=== PATIENT | female | born 1975 | race Caucasian/White ===

== ENCOUNTER 2018-04-18 08:35 | Emergency (ER) | payer OTHER ==
[2018-04-18 08:56] VITALS: BP 122/84
--- NOTE | 2018-04-18 09:43 | RAD ---
INDICATION: Constipation COMPARISON: None TECHNIQUE: Erect and supine views of the abdomen are submitted. FINDINGS: Bones: There are no acute bony findings. Soft tissues: The soft tissues appear normal. The psoas margins are sharp. Bowel gas pattern: Normal Calcifications: There are no abnormal calcifications. There are phleboliths. Other: There are surgical clips projecting over the lower abdomen and pelvis IMPRESSION: NO ACUTE DIAGNOSTIC FINDINGS.
--- NOTE | 2018-04-18 10:20 | UC ---
Abdominal Pain Female HPI - HPI Summary HPI Summary: Patient states she had a bought of diarrhea 10 days ago and that ever since her BMs have been far in between with hardened stools. SHE has taken miralax which yielded liquid stools 2 days ago and then her bowel has not been moving ever since but occasionally. She has history of gastric bypass and went from 270lbs to 170 lbs but now states that since constipation has gained weight again. States she has colicky pain once in a while, on the right side of abdomen. Denies vomiting, fever or mucus/blood/melena in stool. Denies dysuria or flank pain. LMD 10 years ago - History of Current Complaint Chief Complaint: UCGI Stated Complaint: LOW BACK PAIN/GI, Time Seen by Provider: 04/18/18 08:41 Hx Obtained From: Patient Hx Last Menstrual Period: ~2007 ?: No Onset/Duration: Sudden Onset Pain Intensity: 3 Location: Other - right abdomen Radiates to: Back Character: Colicy, Cramping Aggravating Factor(s): Nothing Alleviating Factor(s): Bowel Movement Associated Signs and Symptoms: Positive: Constipation - Risk Factors Ectopic Risk Factor: Negative Ovarian Torsion Risk Factor: Negative Allergies/Adverse Reactions: Allergies Allergy/AdvReac Type Severity Reaction Status Date / Time bee venom protein (honey bee) Allergy Difficulty Verified 04/18/18 08:52 Breathing and Swelling latex Allergy Localized Verified 04/18/18 08:52 Irritation Home Medications: Home Medications Tamoxifen Citrate 20 mg PO DAILY 04/18/18 [History Confirmed 04/18/18] PMH/Surg Hx/FS Hx/Imm Hx Previously Healthy: Yes Cancer History: Breast Cancer - Surgical History Surgical History: Yes Surgery Procedure, Year, and Place: Right Breast Lumpectomy, 2016, [place]; Gastric Bypass, 2009, [place] - Social History Alcohol Use: Weekly Substance Use Type: None Smoking Status (MU): Never Smoked Tobacco Review of Systems Constitutional: Negative Gastrointestinal: Abdominal Pain All Other Systems Reviewed And Are Negative: Yes Physical Exam Triage Information Reviewed: Yes Appearance: Well-Appearing, No Pain Distress, Well-Nourished Vital Signs: Initial Vital Signs Temp 98.3 F 04/18/18 08:48 Pulse 78 04/18/18 08:48 Resp 16 04/18/18 08:48 BP 122/84 04/18/18 08:48 Pulse Ox 99 06/24/18 08:48 Vital Signs Reviewed: Yes Eyes: Positive: Conjunctiva Clear ENT: Positive: Pharynx normal, TMs normal, Uvula midline Neck: Positive: Supple, Nontender, No Lymphadenopathy Respiratory: Positive: Chest non-tender, Lungs clear, Normal breath sounds, No respiratory distress Cardiovascular: Positive: RRR, No Murmur, Pulses Normal, Brisk Capillary Refill Abdomen Description: Positive: Nontender, No Organomegaly, Soft Bowel Sounds: Positive: Present Musculoskeletal: Positive: Strength Intact, ROM Intact, No Edema Neurological: Positive: Alert, Muscle Tone Normal Skin Exam: Normal Abd Pain Female Course/Dx - Course Course Of Treatment: patient has history of constipation for 10 days, instructed to start stool softener and probiotics, abdominal xray recumbent and erect were normal, no signs of obstruction, patient to f/u with PCP - Differential Dx/Diagnosis Provider Diagnoses: constipation Discharge - Sign-Out/Discharge Documenting (check all that apply): Discharge/Admit/Transfer - Discharge Plan Condition: Stable Disposition: HOME - Billing Disposition and Condition Condition: STABLE Disposition: Home
== END 2018-04-18 10:31 | disposition home or self-care (01) ==
LOC: UCCORT 08:35
DX: K59.00 Constipation, unspecified (principal)
CPT/HCPCS: 74019; 99201; G0463